=== PATIENT | male | born 1980 | race Caucasian/White ===

== ENCOUNTER 2023-09-16 00:11 | Day surgery (SDC) | payer BC, SELFPAY ==
[2023-09-01 13:34] VITALS: BMI 33.8
--- NOTE | 2023-09-14 10:27 | SUR.PREOP ---
Patient called regarding upcoming procedure. Reviewed preop instructions, appointment times, and procedure prep.
[2023-09-16 08:54] VITALS: BP 137/88; PULSE 70; RESP 18; TEMP 36.2; O2SAT 100
[2023-09-16] MEDS: LACTATED RINGERS 1,000 ML 150 ML IV CONT (09:00)
--- NOTE | 2023-09-16 09:28 | PM.HPGS ---
History of Present Illness History of Present Illness Consent: Risks, benefits, and alternatives have been discussed and questions answered. Patient agrees to proceed with procedure. Chief complaint: neoplasm screening Narrative: Herve Perez is a 43 year old male here for first screening colonoscopy Review of Systems Constitutional: Constitutional: Denies headache(s) and Denies weakness Eyes: Eyes: Denies blurry vision ENT: Reports Normal hearing present, Denies headache(s) and Denies neck pain Cardiovascular: Cardiovascular: Denies chest pain and Denies dyspnea Respiratory: Respiratory: Denies dyspnea Gastrointestinal: Gastrointestinal: Reports no additional gastrointestinal complaints Genitourinary: Genitourinary: Denies dysuria Musculoskeletal: Musculoskeletal: Denies neck pain Integumentary/Breasts: Skin/Breast: Denies dry skin Neurologic: Reports Normal hearing present, Denies headache(s) and Denies weakness Psychiatric: Psychiatric: Denies anxiety Endocrine: Endocrine: Denies change in body appearance Hematologic/Lymphatic: Hematologic/Lymphatic: Denies easy bleeding Allergic/Immunologic: Allergic/Immunologic: Denies urticaria PMF Past Medical History Medical History (Updated 09/16/23 @ 09:28 by Howie Cui MD) Colon cancer screening Family History Family History Mother Hypertension Father Patient's father is in good health Social History Social History (Updated 07/08/23 @ 14:41 by Isadora Garcia CMA) Smoking status: Never smoker Alcohol intake: current Drinks per week: 2 Substance use: unknown Substance use type: does not use Current Housing: Decline to Answer Concerned About Future Housing: Decline to Answer Difficulty Paying Gas/Electric Bills: Decline to Answer Difficulty Paying for Meds: Decline to Answer Currently Unemployed: Decline to Answer Education: Decline to Answer Difficulty w/ Childcare or Family Care: Decline to Answer Living arrangements: with family Spiritual care concerns: No Meds Home Medications and Allergies Home Medications Medication Instructions Recorded Confirmed Type tadalafil 10 mg tablet 10 mg PO DAILY PRN sexual activity 07/08/23 09/01/23 Rx #60 tabs Allergies Allergy/AdvReac Type Severity Reaction Status Date / Time No Known Allergies Allergy Mild Verified 09/16/23 08:53 Vital Signs Vital Signs - 24 hr 09/16/23 08:54 Temperature 97.1 F L Pulse Rate 70 Respiratory Rate 18 Blood Pressure 137/88 Pulse Oximetry 100 Oxygen Delivery Room Air Exam Const: General: comfortable and no acute distress HENMT: Face/Nose/Sinus: Normal nares present Eyes: General: appearance normal, both eyes and all related structures Neck: Neck: no JVD Resp: Auscultation: clear to auscultation bilaterally Cardio: Rate: regular rate Rhythm: regular rhythm GI: Inspection: non-distended GI Palp: Yes Soft to palpation Skin: General skin exam: normal color Neuro: General: gait normal Speech: normal speech Extrem: General: normal to inspection Psych: Mental Status: mental status grossly normal Assessment and Plan Assessment and plan (1) Colon cancer screening: Code(s): Z12.11 - Encounter for screening for malignant neoplasm of colon Status: Acute Assessment and Plan: colonoscopy
--- NOTE | 2023-09-16 09:28 | WPDANESEPPF ---
Anes - Initial Pre Proc Eval Procedure: Operation Date: 09/16/23 10:00 Proposed Procedures p Screening Colonoscopy - Howie Cui MD Date/Time: 09/16/23 09:28 Surgeon: Howie Cui MD Pre Op Diagnosis: neoplasm screening Patient Data Age: 43 Gender: M Height: 1.73 m Weight: 99 kg Last Vital Signs Temp 97.1 F L 09/16/23 08:54 Pulse 70 09/16/23 08:54 Resp 18 09/16/23 08:54 BP 137/88 09/16/23 08:54 Pulse Ox 100 09/16/23 08:54 O2 Del Method Room Air 09/16/23 08:54 Allergies Allergy/AdvReac Type Severity Reaction Status Date / Time No Known Allergies Allergy Mild Verified 09/16/23 08:53 Home Medications Medication Instructions Recorded Confirmed Type tadalafil 10 mg tablet 10 mg PO DAILY PRN sexual activity 07/08/23 09/01/23 Rx #60 tabs Patient hx anesthesia problems: none Family hx anesthesia problems: none Results Review: All pre-operative results and documents have been reviewed as part of the pre-operative evaluation. [facility] Family History Family History Mother Hypertension Father Patient's father is in good health Social History Social History (Updated 07/08/23 @ 14:41 by Isadora Garcia CMA) Smoking status: Never smoker Alcohol intake: current Drinks per week: 2 Substance use: unknown Substance use type: does not use Current Housing: Decline to Answer Concerned About Future Housing: Decline to Answer Difficulty Paying Gas/Electric Bills: Decline to Answer Difficulty Paying for Meds: Decline to Answer Currently Unemployed: Decline to Answer Education: Decline to Answer Difficulty w/ Childcare or Family Care: Decline to Answer Living arrangements: with family Spiritual care concerns: No Anes - Eval Final PreProcedure Day of Procedure 09/16/23 09:28 Patient weight: normal Heart: regular rate and rhythm Lungs: clear to auscultation Airway: Mallampati scale class II Neurological: alert and oriented Last oral intake: >/= 8 hours ASA classification: II Emergent: no Anesthetic plan: proceed Anesthesia type and monitoring: general GIVS and standard monitoring Results Review: All pre-operative results and documents have been reviewed as part of the pre-operative evaluation. Informed Consent: The patient's anesthetic plan and its attendant risks and benefits were discussed with the patient/family/POA. Questions were solicited and answers provided to the satisfaction of the patient/family/POA.
[2023-09-16 09:48] VITALS: BP 128/83; PULSE 81; RESP 18; O2SAT 99
[2023-09-16 09:58] VITALS: BP 130/91; PULSE 71; RESP 18; O2SAT 100
[2023-09-16 10:03] VITALS: BP 121/89; PULSE 72; RESP 18; O2SAT 99
== END 2023-09-16 10:12 | disposition home or self-care (01) ==
PROVIDERS: PCP Internal Medicine; Visit Provider Internal Medicine Gastroenterology
PROC: 0DJD8ZZ Inspection of Lower Intestinal Tract, Via Natural or Artificial Opening Endoscopic (ICD-10-PCS; CPT 45378; principal; 2023-09-16 10:00)
DX: Z12.11 Encounter for screening for malignant neoplasm of colon (principal); K62.1 Rectal polyp; K57.30 Diverticulosis of large intestine without perforation or abscess without bleeding; K64.8 Other hemorrhoids
CPT/HCPCS: 45380; 88305; J2704; J7120